=== PATIENT | female | born 1980 | race American Indian/Alaskan Native ===

== ENCOUNTER 2016-07-14 09:38 | Emergency (ER) | payer MEDICAID ==
--- NOTE | 2016-07-14 10:29 | Emergency Department Report ---
Chief Complaint: Abdominal Pain Stated Complaint: STOMACH PAIN Time Seen by Provider: 07/14/16 10:20 - HPI History of Present Illness: 36-year-old -Filipino female that comes in for complaint of upper abdominal pain 4 days. She denies any nausea vomiting or diarrhea. She denies any fever. She does report that she has asthma and uses an albuterol inhaler to often. She is followed by primary care provider but will need to check in. Denies any urinary issues no belching. Pain is comes and goes. It is no alleviating or aggravating factors to her pain. - Exam Vital Signs: Vital Signs 07/14/16 10:13 Temperature 98.0 F Pulse Rate 116 H Respiratory 22 Rate Blood Pressure 176/104 O2 Sat by Pulse 95 Oximetry Physical Exam: Patient alert and oriented 3 no acute distress morbid obesity female cardiac regular rate and rhythm respiratory clear to auscultation bilaterally abdomen soft nontender nondistended bowel sounds throughout. MSE screening note: Focused history and physical exam performed. Due to findings the following was ordered: CBC CMP UA urine lipase. ED Disposition for MSE Condition: Stable Instructions: Abdominal Pain (ED)
[2016-07-14 11:09] LABS: Hematocrit 38.1 % (30.3-42.9); Hemoglobin 11.9 gm/dl (10.1-14.3); Mean Corpuscular HGB Conc 31 % (30-34); Mean Corpuscular Volume 77 fl (79-97); Platelet Count 409 K/mm3 (140-440); Red Blood Count 4.94 M/mm3 (3.65-5.03); Red Cell Distribution Width 17.9 % (13.2-15.2); White Blood Count 7.3 K/mm3 (4.5-11.0)
[2016-07-14 11:21] LABS: Mean Corpuscular Hemoglobin 24 pg (28-32)
[2016-07-14 11:33] LABS: Alanine Aminotransferase 12 units/L (7-56); Albumin 3.9 g/dL (3.9-5); Albumin/Globulin Ratio 0.9 %; Alkaline Phosphatase 74 units/L (35-129); Bilirubin,Total 0.3 mg/dL (0.1-1.2); Blood Urea Nitrogen 9 mg/dL (7-17); Calcium 9.2 mg/dL (8.4-10.2); Carbon Dioxide 26 mmol/L (22-30); Chloride 99.5 mmol/L (98-107); Glucose 105 mg/dL (65-100); Lipase 22 units/L (13-60); Potassium 4.4 mmol/L (3.6-5.0); Sodium 139 mmol/L (137-145); Total Protein 8.3 g/dL (6.3-8.2)
[2016-07-14 11:35] LABS: Anion Gap 18 mmol/L
[2016-07-14] MEDS ORDERED: MORPHINE IV ONE (20:20)
--- NOTE | 2016-07-14 20:24 | Emergency Department Report ---
HPI - General Chief Complaint: Abdominal Pain Time Seen by Provider: 07/14/16 10:20 - HPI HPI: This is a 36-year-old Afro-[place]ian female who presents to the emergency department with complaint of right upper quadrant and upper abdominal pain for the past 4 days. She denies any nausea, vomiting, diarrhea, fever, back pain, dysuria, vaginal bleeding or discharge. Patient denies as she says she is currently on her cycle. She tried some Tylenol No. 3 for her discomfort without much relief. Her primary care doctor is Dr. Brownlee but she is not seeing them regarding her symptoms. She has a past history of morbid obesity, hypertension, seizures and migraines. No recent travel or sick contacts at home. She was driven in today by a family member to be seen. ED Past Medical Hx - Past Medical History Hx Hypertension: Yes Hx GERD: Yes Hx Headaches / Migraines: Yes (MIGRAINES) Hx Seizures: Yes - Surgical History Additional Surgical History: Bilateral Keloid removal at ears - Social History Smoking Status: Never Smoker Substance Use Type: None - Medications Home Medications: Home Medications Medication Instructions Recorded Confirmed Last Taken Type Topiramate [Topamax] 100 mg PO BID 04/13/13 06/10/14 12/17/13 History levETIRAcetam [Keppra] 750 mg PO DAILY 04/13/13 06/10/14 12/17/13 History HYDROcodone/APAP 10-325 [[place] 1 each PO Q6HR PRN #14 tablet 10/24/13 05/27/14 Unknown Rx 10/325] Albuterol Sulfate [Ventolin HFA] 2 puff IH Q4H PRN #1 hfa.aer.ad 05/08/1406/09/14 Rx Acetaminophen/Codeine 1 tab PO Q6H PRN #14 tab 05/25/14 05/27/14 Unknown Rx [Acetaminophen-Codeine #3 TAB] Neomy/Polymyx B/Hc (Otic) Soln 4 drops OT TID 10 Days 05/25/14 05/27/14 Unknown Rx [Cortisporin (Otic) Soln] Amoxicillin [Trimox CAP] 1,000 mg PO Q8H #60 capsule 06/29/14 Unknown Rx HYDROcodone/APAP 5-325 [[place] 1 each PO Q6HR PRN #14 tablet 11/26/14 Unknown Rx 5-325 mg TAB] Pantoprazole [Protonix TAB] 40 mg PO QDAY #10 tablet 11/26/14 Unknown Rx Promethazine [Phenergan TAB] 25 mg PO Q6HR PRN #14 tab 11/26/14 Unknown Rx Albuterol Sulfate [Proair 90 mcg IH Q4HR PRN #2 aer.pow.ba 10/09/15 Unknown Rx Respiclick] Benzonatate [Tessalon Perles] 100 mg PO Q8HR PRN #30 capsule 10/09/15 Unknown Rx Acetaminophen/Codeine [Tylenol #3] 1 tab PO Q6H PRN #10 tab 04/18/16 Unknown Rx Ondansetron [Zofran TAB] 4 mg PO Q8HR PRN #10 tablet 04/18/16 Unknown Rx HYDROcodone/APAP 5-325 [[place] 1 each PO Q6HR PRN #10 tablet 07/15/16 Unknown Rx 5/325] Nitrofurantoin [place]/M-Cryst 100 mg PO Q12HR #14 capsule 07/15/16 Unknown Rx [Macrobid CAP] ED Review of Systems ROS: Stated complaint: STOMACH PAIN Other details as noted in HPI Comment: All other systems reviewed and negative Constitutional: denies: chills, fever Eyes: denies: eye pain, eye discharge, vision change ENT: denies: ear pain, throat pain Respiratory: denies: cough, shortness of breath, wheezing Cardiovascular: denies: chest pain, palpitations Gastrointestinal: abdominal pain. denies: nausea, vomiting, diarrhea Genitourinary: denies: urgency, dysuria, discharge Musculoskeletal: denies: back pain, joint swelling, arthralgia Skin: denies: rash, lesions Physical Exam - Physical Exam Vital Signs: Vital Signs 07/14/16 10:13 Temperature 98.0 F Pulse Rate 116 H Respiratory 22 Rate Blood Pressure 176/104 O2 Sat by Pulse 95 Oximetry Physical Exam: GENERAL: The patient is well-developed well-nourished. HEENT: Normocephalic. Atraumatic. Extraocular motions are intact. Patient has moist mucous membranes. Pupils equal reactive to light bilaterally. NECK: Supple. Trachea is midline. CHEST/LUNGS: Clear to auscultation. There is no respiratory distress noted. HEART/CARDIOVASCULAR: Regular. There is no tachycardia. There is no gallop rub or murmur. ABDOMEN: Abdomen is soft, nontender. Unable to reproduce patient's abdominal discomfort to palpation. No guarding or rebound tenderness. No peritoneal signs. Morbidly obese habitus. Patient has normal bowel sounds. There is no abdominal distention. SKIN: Warm and dry. NEURO: The patient is awake, alert, and oriented. The patient is cooperative. The patient has no focal neurologic deficits. The patient has normal speech. MUSCULOSKELETAL: There is no tenderness or deformity. There is no limitation range of motion. There is no evidence of acute injury. ED Course Vital Signs 07/14/16 10:13 Temperature 98.0 F Pulse Rate 116 H Respiratory 22 Rate Blood Pressure 176/104 O2 Sat by Pulse 95 Oximetry ED Medical Decision Making - Lab Data Result diagrams: 07/14/16 10:54 07/14/16 10:54 - Radiology Data Radiology results: report reviewed, image reviewed interpreted by me: Abdominal x-ray does not show any acute process. Right upper quadrant abdominal ultrasound does not show any acute process. - Medical Decision Making 36-year-old female presents with a four-day history of upper abdominal discomfort. There is no nausea, vomiting, diarrhea, fever, dysuria, vaginal bleeding or discharge. Patient's labs, other than the urinalysis, are mostly unremarkable. There is no leukocytosis. Normal belly labs. No renal insufficiency. Urinalysis shows a urinary tract infection. There is a large amount of hematuria but the patient is also currently on her menstrual cycle. She is not . Due to the patient's upper and right upper quadrant abdominal discomfort, an ultrasound was done that came back as a normal examination without any acute process. X-ray of the abdomen was also done that did not show any signs of obstruction or any other acute process as well. Patient was given a single dose of pain medication and some IV fluid resuscitation and upon reevaluation she is feeling better. She'll be discharged home with a prescription for antibiotics and a few pain pills. She' ll be encouraged to follow-up with her primary care doctor but encouraged to return to the ER with any worsening of her symptoms or any acute distress. - Differential Diagnosis pancreatitis, cystitis, hepatitis, , UTI, colitis Critical Care Time: No Critical care attestation.: If time is entered above; I have spent that time in minutes in the direct care of this critically ill patient, excluding procedure time. ED Disposition Clinical Impression: Hypertension Qualifiers: Hypertension type: essential hypertension Qualified Code(s): I10 - Essential ( primary) hypertension Abdominal pain Qualifiers: Abdominal location: upper abdomen, unspecified Qualified Code(s): R10.10 - Upper abdominal pain, unspecified UTI (urinary tract infection) Qualifiers: Urinary tract infection type: acute cystitis Hematuria presence: with hematuria Qualified Code(s): N30.01 - Acute cystitis with hematuria Disposition: DISCHARGED TO HOME OR SELFCARE Is pt being admited?: No Condition: Stable Instructions: Abdominal Pain (ED), Hypertension (ED), Urinary Tract Infection in Women (ED) Additional Instructions: Please follow-up with your primary care doctor in the next few days. Return to the emergency department with any worsening of your symptoms or any acute distress. You've been prescribed a medication that is sedating. Therefore this medication cannot be mixed with alcohol, or taken prior to driving, working, or being responsible for children. Prescriptions: HYDROcodone/APAP 5-325 [[place] 5/325] 1 each PO Q6HR PRN #10 tablet PRN Reason: Pain Nitrofurantoin [place]/M-Cryst [Macrobid CAP] 100 mg PO Q12HR #14 capsule Referrals: ANDRE BROWNLEE MD [Primary Care Provider] - 3-5 Days Forms: Work/School Release Form(ED) Time of Disposition: 01:32
--- NOTE | 2016-07-14 21:31 | Ultrasound Report ---
FINAL REPORT EXAM: US ABDOMEN LIMITED HISTORY: upper abd pain TECHNIQUE: Multiple grayscale sonographic images were obtained of the right upper quadrant of the abdomen. PRIORS: None. FINDINGS: The pancreas is incompletely evaluated this study. Visualized portion of the aorta is normal in caliber. Right kidney measures 11 centimeters in length. There is preserved corticomedullary differentiation. No focal hepatic lesion is identified. No shadowing stones are seen in the visualized portion of the gallbladder. Gallbladder wall thickness is 2.5 millimeters. The common bile duct measures 2.9 millimeters in diameter. IMPRESSION: 1. Gallbladder appears within normal limits. 2. No abnormal biliary dilatation is seen.
[2016-07-14] MEDS ORDERED: NACL 0.9% 1000 ML 1,000 ML ONE (21:58)
[2016-07-14] MEDS ORDERED: NACL 0.9% 1000 ML 1,000 ML IV ONE (22:20)
[2016-07-15 00:58] LABS: Bacteria,Urine 1+ /HPF (Negative); Bilirubin,Urine NEG (Negative); Blood,Urine LG (Negative); Ketones,Urine NEG (Negative); Leukocyte Esterase,Urine SM (Negative); Mucus,Urine FEW /HPF; Nitrite,Urine NEG (Negative); Urobilinogen,Urine < 2.0 mg/dL (<2.0)
[2016-07-15 01:00] LABS: RBC,Urine > 182.0 /HPF (0.0-6.0)
[2016-07-15] MEDS ORDERED: ROCEPHIN/NS 1 GM/50 ML 1 GM/50 ML BAG IV ONE (01:02)
[2016-07-15] MEDS ORDERED: MORPHINE ONE (01:52)
[2016-07-15] MEDS ORDERED: MORPHINE IV ONE (02:01)
[2016-07-15 02:17] VITALS: BP 133/81
--- NOTE | 2016-07-15 10:11 | XRay Report ---
ABDOMEN RADIOGRAPHS INDICATION: Abdominal pain. COMPARISON: 11/26/2014 CT. FINDINGS: Frontal abdominal radiographs, 4 images technically limited due to patient's body habitus. Flanks incompletely imaged. Right hemidiaphragm mildly elevated. Borderline/mild cardiomegaly. Grossly nonobstructive bowel gas pattern without gross pneumatosis or pneumoperitoneum, to the extent assessed. Few bony degenerative changes possible. CONCLUSION: Limited exam without gross radiographic abnormality, as described. Thank you for the opportunity to participate in this patient's care.
== END 2016-07-15 02:16 | disposition home or self-care (01) ==
LOC: ED 09:38
DX: N30.01 Acute cystitis with hematuria (principal); I10 Essential (primary) hypertension; K21.9 Gastro-esophageal reflux disease without esophagitis; G43.909 Migraine, unspecified, not intractable, without status migrainosus; R56.9 Unspecified convulsions
CPT/HCPCS: 36415; 74020; 76705; 80053; 81001; 81025; 83690; 85027; 87086; 96361; 96365; 96375; 96376; 99284; J0696; J2270; J7030

== ENCOUNTER 2016-12-01 10:05 | Emergency (ER) | payer MEDICAID ==
[2016-12-01 10:54] LABS: Basophils % (Auto) 0.7 % (0.0-1.8); Eosinophils % (Auto) 3.3 % (0.0-4.3); Hematocrit 36.2 % (30.3-42.9); Hemoglobin 11.7 gm/dl (10.1-14.3); Mean Corpuscular HGB Conc 32 % (30-34); Mean Corpuscular Volume 77 fl (79-97); Platelet Count 368 K/mm3 (140-440); Red Blood Count 4.72 M/mm3 (3.65-5.03); Red Cell Distribution Width 17.3 % (13.2-15.2); White Blood Count 6.3 K/mm3 (4.5-11.0)
[2016-12-01 10:58] LABS: Mean Corpuscular Hemoglobin 25 pg (28-32)
[2016-12-01 11:11] LABS: Alanine Aminotransferase 15 units/L (7-56); Alkaline Phosphatase 82 units/L (35-129); Anion Gap 16 mmol/L; BUN/Creatinine Ratio 13.75; Blood Urea Nitrogen 11 mg/dL (7-17); Calcium 8.9 mg/dL (8.4-10.2); Carbon Dioxide 30 mmol/L (22-30); Chloride 96.6 mmol/L (98-107); Glucose 105 mg/dL (65-100); Lipase 24 units/L (13-60); Potassium 4.6 mmol/L (3.6-5.0); Sodium 138 mmol/L (137-145); Total Protein 7.9 g/dL (6.3-8.2)
[2016-12-01] MEDS ORDERED: SUBLIMAZE IV ONE (16:18)
[2016-12-01] MEDS ORDERED: NACL ONE (16:46)
--- NOTE | 2016-12-01 17:59 | Cat Scan Report ---
FINAL REPORT PROCEDURE: CT abdomen and pelvis with contrast. TECHNIQUE: Computerized axial tomography of the abdomen and pelvis was performed after the IV injection of iodinated nonionic contrast. HISTORY: Left-sided flank pain. COMPARISON: No prior studies are available for comparison. FINDINGS: Image quality is degraded by the patient's morbid obesity. The lung bases are clear. There are no pleural effusions. The heart size is normal. The liver, pancreas and spleen appear normal. The gallbladder is contracted. The adrenal glands are not enlarged. Both kidneys appear normal in size and configuration. The abdominal aorta has a normal caliber. There is no retroperitoneal adenopathy. The unopacified gastrointestinal tract is unremarkable. A normal appendix is visible. The bladder, uterus and adnexal regions are unremarkable. The regional skeleton appears intact. IMPRESSION: Normal studies of the abdomen and pelvis.
[2016-12-01 18:54] LABS: Bacteria,Urine 1+ /HPF (Negative); Bilirubin,Urine NEG (Negative); Blood,Urine SM (Negative); Ketones,Urine NEG (Negative); Leukocyte Esterase,Urine MOD (Negative); Mucus,Urine FEW /HPF; Nitrite,Urine NEG (Negative); Protein,Urine <15 mg/dL mg/dL (Negative); Urobilinogen,Urine < 2.0 mg/dL (<2.0)
[2016-12-01] MEDS ORDERED: MORPHINE IV ONE (19:01)
[2016-12-01] MEDS ORDERED: NORCO 10/325 PO ONE (19:02)
--- NOTE | 2016-12-01 19:50 | Emergency Department Report ---
ED Abdominal Pain HPI - General Chief Complaint: Abdominal Pain Stated Complaint: SIDE PAIN Time Seen by Provider: 12/01/16 16:17 Source: patient Mode of arrival: Ambulatory Limitations: No Limitations - History of Present Illness Initial Comments: Patient is a 36-year-old female past medical history of GERD, obesity, seizures , keloids, who presents with left-sided abdominal pain that has been going on for the last 2 weeks the pain is a 4 out of 10 and it is intermittent and is not associated with any symptoms. It is an achy type pain it does not radiate nothing makes it better or worse. Patient denies any dysuria or increased frequency last bowel movement was this morning she denies any vaginal bleeding or vaginal discharge. Patient also denies any nausea, vomiting or diarrhea. Patient states that she's tried some [id number] medications for her pain. Severity scale (0 -10): 10 - Related Data Home Medications Medication Instructions Recorded Confirmed Last Taken Topiramate [Topamax] 100 mg PO BID 04/13/13 06/10/14 12/17/13 levETIRAcetam [Keppra] 750 mg PO DAILY 04/13/13 06/10/14 12/17/13 Previous Rx's Medication Instructions Recorded Last Taken Type HYDROcodone/APAP 10-325 [[place] 1 each PO Q6HR PRN #14 tablet 10/24/13 Unknown Rx 10/325] Albuterol Sulfate [Ventolin HFA] 2 puff IH Q4H PRN #1 hfa.aer.ad 05/08/14 Rx Acetaminophen/Codeine 1 tab PO Q6H PRN #14 tab 05/25/14 Unknown Rx [Acetaminophen-Codeine #3 TAB] Neomy/Polymyx B/Hc (Otic) Soln 4 drops OT TID 10 Days 05/25/14 Unknown Rx [Cortisporin (Otic) Soln] Amoxicillin [Trimox CAP] 1,000 mg PO Q8H #60 capsule 06/29/14 Unknown Rx HYDROcodone/APAP 5-325 [[place] 1 each PO Q6HR PRN #14 tablet 11/26/14 Unknown Rx 5-325 mg TAB] Pantoprazole [Protonix TAB] 40 mg PO QDAY #10 tablet 11/26/14 Unknown Rx Promethazine [Phenergan TAB] 25 mg PO Q6HR PRN #14 tab 11/26/14 Unknown Rx Albuterol Sulfate [Proair 90 mcg IH Q4HR PRN #2 aer.pow.ba 10/09/15 Unknown Rx Respiclick] Benzonatate [Tessalon Perles] 100 mg PO Q8HR PRN #30 capsule 10/09/15 Unknown Rx Acetaminophen/Codeine [Tylenol #3] 1 tab PO Q6H PRN #10 tab 04/18/16 Unknown Rx Ondansetron [Zofran TAB] 4 mg PO Q8HR PRN #10 tablet 04/18/16 Unknown Rx HYDROcodone/APAP 5-325 [[place] 1 each PO Q6HR PRN #10 tablet 07/15/16 Unknown Rx 5/325] Nitrofurantoin [place]/M-Cryst 100 mg PO Q12HR #14 capsule 07/15/16 Unknown Rx [Macrobid CAP] traMADol [Ultram 50 MG tab] 50 mg PO Q6HR PRN #15 tablet 12/01/16 Unknown Rx Allergies Allergy/AdvReac Type Severity Reaction Status Date / Time ibuprofen [From Motrin] Allergy Rash Verified 04/13/13 22:18 caffeine AdvReac Seizure Verified 05/27/14 16:09 ED Review of Systems ROS: Stated complaint: SIDE PAIN Other details as noted in HPI Constitutional: denies: chills, fever Eyes: denies: eye pain, eye discharge, vision change ENT: denies: ear pain, throat pain Respiratory: denies: cough, shortness of breath, wheezing Cardiovascular: denies: chest pain, palpitations Endocrine: no symptoms reported Gastrointestinal: abdominal pain, other (flank pain) Genitourinary: denies: urgency, dysuria, discharge Musculoskeletal: denies: back pain, joint swelling, arthralgia Skin: denies: rash, lesions Neurological: denies: headache, weakness, paresthesias Psychiatric: denies: anxiety, depression Hematological/Lymphatic: denies: easy bleeding, easy bruising ED Past Medical Hx - Past Medical History Hx Hypertension: Yes Hx GERD: Yes Hx Headaches / Migraines: Yes (MIGRAINES) Hx Seizures: Yes Additional medical history: Anemia - Surgical History Additional Surgical History: Bilateral Keloid removal at ears - Social History Smoking Status: Never Smoker Substance Use Type: None - Medications Home Medications: Home Medications Medication Instructions Recorded Confirmed Last Taken Type Topiramate [Topamax] 100 mg PO BID 04/13/13 06/10/14 12/17/13 History levETIRAcetam [Keppra] 750 mg PO DAILY 04/13/13 06/10/14 12/17/13 History HYDROcodone/APAP 10-325 [[place] 1 each PO Q6HR PRN #14 tablet 10/24/13 05/27/14 Unknown Rx 10/325] Albuterol Sulfate [Ventolin HFA] 2 puff IH Q4H PRN #1 hfa.aer.ad 05/08/1406/09/14 Rx Acetaminophen/Codeine 1 tab PO Q6H PRN #14 tab 05/25/14 05/27/14 Unknown Rx [Acetaminophen-Codeine #3 TAB] Neomy/Polymyx B/Hc (Otic) Soln 4 drops OT TID 10 Days 05/25/14 05/27/14 Unknown Rx [Cortisporin (Otic) Soln] Amoxicillin [Trimox CAP] 1,000 mg PO Q8H #60 capsule 06/29/14 Unknown Rx HYDROcodone/APAP 5-325 [[place] 1 each PO Q6HR PRN #14 tablet 11/26/14 Unknown Rx 5-325 mg TAB] Pantoprazole [Protonix TAB] 40 mg PO QDAY #10 tablet 11/26/14 Unknown Rx Promethazine [Phenergan TAB] 25 mg PO Q6HR PRN #14 tab 11/26/14 Unknown Rx Albuterol Sulfate [Proair 90 mcg IH Q4HR PRN #2 aer.pow.ba 10/09/15 Unknown Rx Respiclick] Benzonatate [Tessalon Perles] 100 mg PO Q8HR PRN #30 capsule 10/09/15 Unknown Rx Acetaminophen/Codeine [Tylenol #3] 1 tab PO Q6H PRN #10 tab 04/18/16 Unknown Rx Ondansetron [Zofran TAB] 4 mg PO Q8HR PRN #10 tablet 04/18/16 Unknown Rx HYDROcodone/APAP 5-325 [[place] 1 each PO Q6HR PRN #10 tablet 07/15/16 Unknown Rx 5/325] Nitrofurantoin [place]/M-Cryst 100 mg PO Q12HR #14 capsule 07/15/16 Unknown Rx [Macrobid CAP] traMADol [Ultram 50 MG tab] 50 mg PO Q6HR PRN #15 tablet 12/01/16 Unknown Rx ED Physical Exam - General Limitations: No Limitations ED Course Vital Signs 12/01/16 12/01/16 12/01/16 10:18 15:29 15:30 Temperature 98.9 F Pulse Rate 114 H 106 H 116 H Respiratory 22 15 18 Rate Blood Pressure 160/110 Blood Pressure [Right] O2 Sat by Pulse 94 Oximetry 12/01/16 12/01/16 12/01/16 15:40 15:50 16:00 Temperature Pulse Rate 102 H 103 H 99 H Respiratory 24 12 21 Rate Blood Pressure 140/79 140/79 140/79 Blood Pressure 140/79 [Right] O2 Sat by Pulse 95 95 94 Oximetry 12/01/16 12/01/16 12/01/16 16:10 16:11 16:20 Temperature 98.4 F Pulse Rate 99 H 99 H 105 H Respiratory 15 18 25 H Rate Blood Pressure 118/68 118/68 Blood Pressure 118/68 [Right] O2 Sat by Pulse 95 100 96 Oximetry 12/01/16 12/01/16 12/01/16 16:30 16:40 17:16 Temperature Pulse Rate 104 H 104 H 104 H Respiratory 25 H 25 H Rate Blood Pressure 118/68 118/68 118/68 Blood Pressure [Right] O2 Sat by Pulse 97 97 94 Oximetry 12/01/16 12/01/16 12/01/16 17:20 17:30 17:40 Temperature Pulse Rate 106 H 100 H 103 H Respiratory 16 9 L 12 Rate Blood Pressure 129/72 118/74 118/74 Blood Pressure [Right] O2 Sat by Pulse 93 92 89 Oximetry 12/01/16 12/01/16 12/01/16 17:50 18:00 18:10 Temperature Pulse Rate 106 H 97 H Respiratory 19 22 Rate Blood Pressure 118/74 118/74 118/74 Blood Pressure [Right] O2 Sat by Pulse 94 93 96 Oximetry 12/01/16 12/01/16 12/01/16 18:20 18:30 18:40 Temperature Pulse Rate 97 H 98 H 100 H Respiratory 25 H 17 27 H Rate Blood Pressure 133/87 124/70 124/70 Blood Pressure [Right] O2 Sat by Pulse 96 95 94 Oximetry 12/01/16 12/01/1612/01/17 18:50 19:00 19:10 Temperature Pulse Rate 96 H 97 H 99 H Respiratory 22 17 36 H Rate Blood Pressure 124/70 124/72 124/72 Blood Pressure [Right] O2 Sat by Pulse 96 95 91 Oximetry 12/01/16 12/01/16 12/01/16 19:20 19:30 19:40 Temperature Pulse Rate 96 H 94 H 99 H Respiratory 19 22 22 Rate Blood Pressure 124/72 111/59 111/59 Blood Pressure [Right] O2 Sat by Pulse 96 93 92 Oximetry 12/01/16 12/01/16 12/01/16 19:50 20:00 20:10 Temperature Pulse Rate 96 H 96 H 100 H Respiratory 37 H 22 19 Rate Blood Pressure 111/59 104/55 104/55 Blood Pressure [Right] O2 Sat by Pulse 84 90 91 Oximetry - Reevaluation(s) Reevaluation #1: 12/01/16 20:04 Patient's pain has improved also patient home patient's diagnostic questions have been answered and verbal additional verbal discharge instructions were given. ED Medical Decision Making - Lab Data Result diagrams: 12/01/16 10:29 12/01/16 10:29 Laboratory Results - last 24 hr 12/01/16 12/01/16 12/01/16 10:29 10:29 18:03 WBC 6.3 RBC 4.72 Hgb 11.7 Hct 36.2 MCV 77 L MCH 25 L MCHC 32 RDW 17.3 H Plt Count 368 Lymph % (Auto) 27.2 [place] % (Auto) 7.3 Eos % (Auto) 3.3 Baso % (Auto) 0.7 Lymph # 1.7 [place] # 0.5 Eos # 0.2 Baso # 0.0 Seg Neutrophils % 61.5 Seg Neutrophils # 3.9 Sodium 138 Potassium 4.6 Chloride 96.6 L Carbon Dioxide 30 Anion Gap 16 BUN 11 Creatinine 0.8 Estimated GFR > 60 BUN/Creatinine Ratio 13.75 Glucose 105 H Calcium 8.9 Total Bilirubin 0.20 AST 14 ALT 15 Alkaline Phosphatase 82 Total Protein 7.9 Albumin 4.0 Albumin/Globulin Ratio 1.0 Lipase 24 Urine Color Yellow Urine Turbidity Clear Urine pH 5.0 Ur Specific [place] 1.051 H Urine Protein <15 mg/dl Urine Glucose (UA) Neg Urine Ketones Neg Urine Blood Sm Urine Nitrite Neg Urine Bilirubin Neg Urine Urobilinogen < 2.0 Ur Leukocyte Esterase Mod Urine WBC (Auto) 21.0 H Urine RBC (Auto) 3.0 U Epithel Cells (Auto) 32.0 H Urine Bacteria (Auto) 1+ Urine Mucus Few - Radiology Data Radiology results: report reviewed, image reviewed CT abdomen contrast studies degree by patient's body habitus CT scan shows no acute abdominal processes. - Medical Decision Making Chief medical diagnosis: Pancreatitis Differential medical diagnosis: GERD, appendicitis, peptic ulcer disease, kidney stone We'll give pain control will get CBC CMP CT abdomen lipase normal reevaluate CT scan shows no acute findings lab results within normal limits patient has no acute abdominal process we'll send patient home with oral and adjacent medication. Critical care attestation.: If time is entered above; I have spent that time in minutes in the direct care of this critically ill patient, excluding procedure time. ED Disposition Clinical Impression: Left flank pain, Myalgia Disposition: - TO HOME OR SELFCARE Is pt being admited?: No Does the pt Need Aspirin: No Condition: Stable Instructions: Abdominal Pain (ED) Prescriptions: traMADol [Ultram 50 MG tab] 50 mg PO Q6HR PRN #15 tablet PRN Reason: Pain Referrals: PRIMARY CARE, [Primary Care Provider] - 3-5 Days Forms: Work/School Release Form(ED) Time of Disposition: 20:23
[2016-12-01] MEDS ORDERED: NACL 0.9% 1000 ML 1,000 ML ONE ×2 (20:26→20:27)
[2016-12-01] MEDS ORDERED: NACL 0.9% 1000 ML 1,000 ML IV ONE (20:35)
[2016-12-01 21:40] VITALS: BP 124/74
== END 2016-12-01 21:45 | disposition home or self-care (01) ==
LOC: ED 10:05
DX: R10.9 Unspecified abdominal pain (principal); M79.1 Myalgia; I10 Essential (primary) hypertension; K21.9 Gastro-esophageal reflux disease without esophagitis; G43.909 Migraine, unspecified, not intractable, without status migrainosus; D64.9 Anemia, unspecified; Z88.6 Allergy status to analgesic agent; Z91.02 Food additives allergy status
CPT/HCPCS: 36415; 74177; 80053; 81001; 83690; 85025; 96361; 96374; 96375; 99284; J2270; J3010; J7030; Q9967

== ENCOUNTER 2017-04-21 19:11 | Emergency (ER) | payer MEDICAID ==
[2017-04-21 21:32] LABS: Basophils % (Auto) 0.6 % (0.0-1.8); Eosinophils % (Auto) 2.6 % (0.0-4.3); Hematocrit 38.9 % (30.3-42.9); Mean Corpuscular HGB Conc 31 % (30-34); Mean Corpuscular Volume 76 fl (79-97); Platelet Count 408 K/mm3 (140-440); Red Blood Count 5.12 M/mm3 (3.65-5.03); White Blood Count 10.9 K/mm3 (4.5-11.0)
[2017-04-21 21:43] LABS: Alanine Aminotransferase 16 units/L (7-56); Albumin 3.9 g/dL (3.9-5); Albumin/Globulin Ratio 1.1 %; Alkaline Phosphatase 78 units/L (35-129); Anion Gap 17 mmol/L; BUN/Creatinine Ratio 12; Blood Urea Nitrogen 7 mg/dL (7-17); Carbon Dioxide 31 mmol/L (22-30); Chloride 94.8 mmol/L (98-107); Glucose 89 mg/dL (65-100); Lipase 20 units/L (13-60); Mean Corpuscular Hemoglobin 24 pg (28-32); Potassium 4.6 mmol/L (3.6-5.0); Sodium 138 mmol/L (137-145); Total Protein 7.5 g/dL (6.3-8.2)
[2017-04-22] MEDS ORDERED: ROCEPHIN/NS 1 GM/50 ML 1 GM/50 ML BAG IV ONE (08:49)
[2017-04-22] MEDS ORDERED: NACL 0.9% 1000 ML 1,000 ML IV ONE (08:49)
--- NOTE | 2017-04-22 08:52 | Emergency Department Report ---
ED General Adult HPI - General Chief complaint: Abdominal Pain Stated complaint: LEFT FLANK PAIN/TEJ Time Seen by Provider: 04/22/17 08:47 Source: patient Mode of arrival: Wheelchair Limitations: No Limitations - History of Present Illness Initial comments: The patient complains of constant severe pain and what she terms her left side. However, on examination the patient is referring to her anterior left upper quadrant. She recoils with initial comfort on palpation of the area. She also presents with other pain complaints to include intermittent headaches for one week and not chest pain. She states that "her bronchitis is acting up". She was found to have a pulse oximetry of 91% on room air. She states that she has been given nebs before. He does not complain of any productive cough. She's had no recent travel. She denies leg pain or significant swelling. -: week(s) Location: abdomen Radiation: non-radiation Quality: aching Consistency: constant Improves with: none Worsens with: none Associated Symptoms: headaches, shortness of breath. denies: confusion, chest pain, cough, diaphoresis, fever/chills - Related Data Home Medications Medication Instructions Recorded Confirmed Last Taken Topiramate [Topamax] 100 mg PO BID 04/13/13 06/10/14 12/17/13 levETIRAcetam [Keppra] 750 mg PO DAILY 04/13/13 06/10/14 12/17/13 Previous Rx's Medication Instructions Recorded Last Taken Type HYDROcodone/APAP 10-325 [[place] 1 each PO Q6HR PRN #14 tablet 10/24/13 Unknown Rx 10/325] Albuterol Sulfate [Ventolin HFA] 2 puff IH Q4H PRN #1 hfa.aer.ad 05/08/14 Rx Acetaminophen/Codeine 1 tab PO Q6H PRN #14 tab 05/25/14 Unknown Rx [Acetaminophen-Codeine #3 TAB] Neomy/Polymyx B/Hc (Otic) Soln 4 drops OT TID 10 Days bottle 05/25/14 Unknown Rx [Cortisporin (Otic) Soln] Amoxicillin [Trimox CAP] 1,000 mg PO Q8H #60 capsule 06/29/14 Unknown Rx HYDROcodone/APAP 5-325 [[place] 1 each PO Q6HR PRN #14 tablet 11/26/14 Unknown Rx 5-325 mg TAB] Pantoprazole [Protonix TAB] 40 mg PO QDAY #10 tablet 11/26/14 Unknown Rx Promethazine [Phenergan TAB] 25 mg PO Q6HR PRN #14 tab 11/26/14 Unknown Rx Albuterol Sulfate [Proair 90 mcg IH Q4HR PRN #2 aer.pow.ba 10/09/15 Unknown Rx Respiclick] Benzonatate [Tessalon Perles] 100 mg PO Q8HR PRN #30 capsule 10/09/15 Unknown Rx Acetaminophen/Codeine [Tylenol #3] 1 tab PO Q6H PRN #10 tab 04/18/16 Unknown Rx Ondansetron [Zofran TAB] 4 mg PO Q8HR PRN #10 tablet 04/18/16 Unknown Rx HYDROcodone/APAP 5-325 [[place] 1 each PO Q6HR PRN #10 tablet 07/15/16 Unknown Rx 5/325] Nitrofurantoin [place]/M-[place]ryst 100 mg PO Q12HR #14 capsule 07/15/16 Unknown Rx [Macrobid CAP] traMADol [Ultram 50 MG tab] 50 mg PO Q6HR PRN #15 tablet 12/01/16 Unknown Rx Allergies Allergy/AdvReac Type Severity Reaction Status Date / Time ibuprofen [From Motrin] Allergy Rash Verified 04/13/13 22:18 caffeine AdvReac Seizure Verified 05/27/14 16:09 ED Review of Systems ROS: Stated complaint: LEFT FLANK PAIN/TEJ Other details as noted in HPI Constitutional: denies: chills, fever Eyes: denies: eye pain, eye discharge, vision change ENT: denies: ear pain, throat pain Respiratory: shortness of breath. denies: cough, wheezing Cardiovascular: denies: chest pain, palpitations Endocrine: no symptoms reported Gastrointestinal: abdominal pain, nausea, vomiting. denies: diarrhea Genitourinary: denies: urgency, dysuria, discharge Musculoskeletal: denies: back pain, joint swelling, arthralgia Skin: denies: rash, lesions Neurological: denies: headache, weakness, paresthesias Psychiatric: denies: anxiety, depression Hematological/Lymphatic: denies: easy bleeding, easy bruising ED Past Medical Hx - Past Medical History Hx Hypertension: Yes Hx GERD: Yes Hx Headaches / Migraines: (MIGRAINES) Hx Seizures: Yes Additional medical history: Anemia - Surgical History Additional Surgical History: Bilateral Keloid removal at ears - Social History Smoking Status: Never Smoker Substance Use Type: None - Medications Home Medications: Home Medications Medication Instructions Recorded Confirmed Last Taken Type Topiramate [Topamax] 100 mg PO BID 04/13/13 06/10/14 12/17/13 History levETIRAcetam [Keppra] 750 mg PO DAILY 04/13/13 06/10/14 12/17/13 History HYDROcodone/APAP 10-325 [[place] 1 each PO Q6HR PRN #14 tablet 10/24/13 05/27/14 Unknown Rx 10/325] Albuterol Sulfate [Ventolin HFA] 2 puff IH Q4H PRN #1 hfa.aer.ad 05/08/1406/09/14 Rx Acetaminophen/Codeine 1 tab PO Q6H PRN #14 tab 05/25/14 05/27/14 Unknown Rx [Acetaminophen-Codeine #3 TAB] Neomy/Polymyx B/Hc (Otic) Soln 4 drops OT TID 10 Days bottle 05/25/14 05/27/14 Unknown Rx [Cortisporin (Otic) Soln] Amoxicillin [Trimox CAP] 1,000 mg PO Q8H #60 capsule 06/29/14 Unknown Rx HYDROcodone/APAP 5-325 [[place] 1 each PO Q6HR PRN #14 tablet 11/26/14 Unknown Rx 5-325 mg TAB] Pantoprazole [Protonix TAB] 40 mg PO QDAY #10 tablet 11/26/14 Unknown Rx Promethazine [Phenergan TAB] 25 mg PO Q6HR PRN #14 tab 11/26/14 Unknown Rx Albuterol Sulfate [Proair 90 mcg IH Q4HR PRN #2 aer.pow.ba 10/09/15 Unknown Rx Respiclick] Benzonatate [Tessalon Perles] 100 mg PO Q8HR PRN #30 capsule 10/09/15 Unknown Rx Acetaminophen/Codeine [Tylenol #3] 1 tab PO Q6H PRN #10 tab 04/18/16 Unknown Rx Ondansetron [Zofran TAB] 4 mg PO Q8HR PRN #10 tablet 04/18/16 Unknown Rx HYDROcodone/APAP 5-325 [[place] 1 each PO Q6HR PRN #10 tablet 07/15/16 Unknown Rx 5/325] Nitrofurantoin [place]/M-Cryst 100 mg PO Q12HR #14 capsule 07/15/16 Unknown Rx [Macrobid CAP] traMADol [Ultram 50 MG tab] 50 mg PO Q6HR PRN #15 tablet 12/01/16 Unknown Rx ED Physical Exam - General Limitations: No Limitations General appearance: alert, in no apparent distress - Head Head exam: Present: atraumatic, normocephalic - Eye Eye exam: Present: normal appearance - ENT ENT exam: Present: mucous membranes moist - Neck Neck exam: Present: normal inspection. Absent: tenderness, meningismus - Respiratory Respiratory exam: Present: decreased breath sounds (disposition secondary to morbid obesity). Absent: respiratory distress - Cardiovascular Cardiovascular Exam: Present: regular rate, normal rhythm. Absent: systolic murmur, diastolic murmur, rubs, gallop - GI/Abdominal GI/Abdominal exam: Present: soft, tenderness (the patient has a very exaggerated response even to touching her left upper quadrant. I do not believe she has peritoneal signs.), normal bowel sounds - Extremities Exam Extremities exam: Present: normal inspection - Back Exam Back exam: Present: normal inspection - Neurological Exam Neurological exam: Present: alert, oriented X3 - Psychiatric Psychiatric exam: Present: normal affect, normal mood - Skin Skin exam: Present: warm, dry, intact, normal color. Absent: rash ED Course Vital Signs 04/21/17 04/22/17 20:25 09:25 Temperature 98.9 F 99.3 F Pulse Rate 115 H 110 H Respiratory 20 18 Rate Blood Pressure 154/92 Blood Pressure 107/75 [Left] O2 Sat by Pulse 100 93 Oximetry - Reevaluation(s) Reevaluation #1: Arterial blood gas was ordered because the patient's CO2 was 31 and she is morbidly obese. This was not successful. She was given a neb. She stated that that improved her breathing. She persisted to state that she had excruciating pain in the left upper quadrant of the abdomen even to light touch. This pretty persistently appears disproportionate to her laboratory and a negative CT examination. I have ordered some additional blood work. The patient is referred to Dr. Louis for further evaluation. 04/22/17 13:13 ED Medical Decision Making - Lab Data Result diagrams: 04/21/17 21:02 04/21/17 21:02 Laboratory Results - last 24 hr 04/21/17 04/21/17 21:02 21:02 WBC 10.9 RBC 5.12 H Hgb 12.0 Hct 38.9 MCV 76 L MCH 24 L MCHC 31 RDW 19.0 H Plt Count 408 Lymph % (Auto) 16.6 [place] % (Auto) 9.1 H Eos % (Auto) 2.6 Baso % (Auto) 0.6 Lymph # 1.8 [place] # 1.0 H Eos # 0.3 Baso # 0.1 Seg Neutrophils % 71.1 H Seg Neutrophils # 7.8 H Sodium 138 Potassium 4.6 Chloride 94.8 L Carbon Dioxide 31 H Anion Gap 17 BUN 7 Creatinine 0.6 L Estimated GFR > 60 BUN/Creatinine Ratio 12 Glucose 89 Calcium 9.0 Total Bilirubin 0.30 AST 13 ALT 16 Alkaline Phosphatase 78 Troponin T < 0.010 Total Protein 7.5 Albumin 3.9 Albumin/Globulin Ratio 1.1 Lipase 20 Laboratory Results - last 24 hr 04/21/17 04/21/17 04/22/17 21:02 21:02 09:25 WBC 10.9 RBC 5.12 H Hgb 12.0 Hct 38.9 MCV 76 L MCH 24 L MCHC 31 RDW 19.0 H Plt Count 408 Lymph % (Auto) 16.6 [place] % (Auto) 9.1 H Eos % (Auto) 2.6 Baso % (Auto) 0.6 Lymph # 1.8 [place] # 1.0 H Eos # 0.3 Baso # 0.1 Seg Neutrophils % 71.1 H Seg Neutrophils # 7.8 H Sodium 138 Potassium 4.6 Chloride 94.8 L Carbon Dioxide 31 H Anion Gap 17 BUN 7 Creatinine 0.6 L Estimated GFR > 60 BUN/Creatinine Ratio 12 Glucose 89 Calcium 9.0 Total Bilirubin 0.30 AST 13 ALT 16 Alkaline Phosphatase 78 Troponin T < 0.010 Total Protein 7.5 Albumin 3.9 Albumin/Globulin Ratio 1.1 Lipase 20 Urine Color Yellow Urine Turbidity Clear Urine pH 6.0 Ur Specific [place] 1.018 Urine Protein <15 mg/dl Urine Glucose (UA) Neg Urine Ketones Neg Urine Blood Neg Urine Nitrite Neg Urine Bilirubin Neg Urine Urobilinogen < 2.0 Ur Leukocyte Esterase Neg Urine WBC (Auto) 3.0 Urine RBC (Auto) 3.0 U Epithel Cells (Auto) 1.0 Urine Bacteria (Auto) 1+ Urine Mucus Few Urine HCG, Qual Negative Critical care attestation.: If time is entered above; I have spent that time in minutes in the direct care of this critically ill patient, excluding procedure time. ED Disposition Clinical Impression: Morbid obesity, Hypoventilation associated with obesity Abdominal pain Qualifiers: Abdominal location: left upper quadrant Qualified Code(s): R10.12 - Left upper quadrant pain Disposition: 09 OP ADMIT IP TO THIS HOSP Is pt being admited?: Yes Does the pt Need Aspirin: Yes Condition: Stable Instructions: Abdominal Pain (ED) Referrals: JASWINDER RODRIGUEZ MD [Primary Care Provider] - 3-5 Days Time of Disposition: 13:16
[2017-04-22 09:44] LABS: Bacteria,Urine 1+ /HPF (Negative); Bilirubin,Urine NEG (Negative); Blood,Urine NEG (Negative); Ketones,Urine NEG (Negative); Leukocyte Esterase,Urine NEG (Negative); Mucus,Urine FEW /HPF; Nitrite,Urine NEG (Negative); Protein,Urine <15 mg/dL mg/dL (Negative); Urobilinogen,Urine < 2.0 mg/dL (<2.0)
[2017-04-22] MEDS ORDERED: cefTRIAXone 1 GM in NACL 0.9% 20 ML IV ONE (09:45)
[2017-04-22] MEDS ORDERED: DILAUDID IV ONE (10:05)
[2017-04-22] MEDS ORDERED: ZOFRAN IV ONE (10:06)
[2017-04-22] MEDS ORDERED: NACL ONE (10:31)
--- NOTE | 2017-04-22 11:27 | Cat Scan Report ---
CT ABDOMEN PELVIS WITH CONTRAST: HISTORY: Left upper quadrant abdominal pain. COMPARISON: 12/01/16. TECHNIQUE: Helical CT in 1.25mm intervals following IV contrast. Sagittal and coronal reconstructions. FINDINGS: Comment: The images are slightly limited in resolution secondary to body habitus. Lung bases: Normal. Liver: Normal. Biliary system: Normal. Pancreas: Normal. Spleen: Normal. Kidneys/ureters/bladder: Normal. Adrenal glands: Normal. Aorta: Normal. Intestines: Normal. Appendix: Normal. Pelvic viscera: Normal. Ascites: None. Adenopathy: None. Musculoskeletal: Normal. IMPRESSION: Unremarkable CT scan of the abdomen and pelvis with contrast. No change since 12/01/16.
[2017-04-22] MEDS ORDERED: DUONEB *Not for PRN Use IH ONE (11:48)
[2017-04-22] MEDS ORDERED: DILAUDID ONE (12:55)
[2017-04-22] MEDS ORDERED: PEPCID IV ONE (13:12)
[2017-04-22 13:45] VITALS: BP 129/84
[2017-04-22 14:08] LABS: Creatine Kinase 105 units/L (30-135); Creatine Kinase MB 2.2 ng/mL (0.0-4.0)
--- NOTE | 2017-04-22 14:09 | XRay Report ---
AP CHEST: HISTORY: Hypertension There is poor penetration secondary to body habitus. Cardiomegaly, pulmonary venous congestion and small pleural effusions are suspected which appear new since 10/09/15. There is no obvious consolidation or pneumothorax. IMPRESSION: Limited exam. Mild CHF is suspected.
--- NOTE | 2017-04-22 17:17 | History and Physical Report ---
History of Present Illness Chief complaint: my side hurts, and i cant breathe right History of present illness: 37 YO Female with HTN, GERD, Seizure DO, [place], presents to ED for evaluation. The patient complains of constant severe pain and what she terms her left side. However, on examination the patient is referring to her anterior left upper quadrant. She recoils with initial comfort on palpation of the area. She also presents with other pain complaints to include intermittent headaches for one week and not chest pain. She states that "her bronchitis is acting up". She was found to have a pulse oximetry of 91% on room air. She states that she has been given nebs before. He does not complain of any productive cough. She's had no recent travel. She denies leg pain or significant swelling. Pt seen and evaluated in ED, Cardiac workup negative, D dimer normal. Pt medically optimzed and back to usual state of health. Pt discharged home and instructed to f/u pcp 1wk. Past History Past Medical History: GERD, hypertension, seizures Past Surgical History: Other (ear surgery) Social history: single Family history: hypertension Medications and Allergies Allergies Allergy/AdvReac Type Severity Reaction Status Date / Time ibuprofen [From Motrin] Allergy Rash Verified 04/13/13 22:18 caffeine AdvReac Seizure Verified 05/27/14 16:09 Home Medications Medication Instructions Recorded Confirmed Last Taken Type Topiramate [Topamax] 100 mg PO BID 04/13/13 06/10/14 12/17/13 History levETIRAcetam [Keppra] 750 mg PO DAILY 04/13/13 06/10/14 12/17/13 History HYDROcodone/APAP 10-325 [[place] 1 each PO Q6HR PRN #14 tablet 10/24/13 05/27/14 Unknown Rx 10/325] Albuterol Sulfate [Ventolin HFA] 2 puff IH Q4H PRN #1 hfa.aer.ad 05/08/1406/09/14 Rx Acetaminophen/Codeine 1 tab PO Q6H PRN #14 tab 05/25/14 05/27/14 Unknown Rx [Acetaminophen-Codeine #3 TAB] Neomy/Polymyx B/Hc (Otic) Soln 4 drops OT TID 10 Days bottle 01/21/15 01/23/15 Unknown Rx [Cortisporin (Otic) Soln] Amoxicillin [Trimox CAP] 1,000 mg PO Q8H #60 capsule 06/29/14 Unknown Rx HYDROcodone/APAP 5-325 [[place] 1 each PO Q6HR PRN #14 tablet 11/26/14 Unknown Rx 5-325 mg TAB] Pantoprazole [Protonix TAB] 40 mg PO QDAY #10 tablet 11/26/14 Unknown Rx Promethazine [Phenergan TAB] 25 mg PO Q6HR PRN #14 tab 11/26/14 Unknown Rx Albuterol Sulfate [Proair 90 mcg IH Q4HR PRN #2 aer.pow.ba 10/09/15 Unknown Rx Respiclick] Benzonatate [Tessalon Perles] 100 mg PO Q8HR PRN #30 capsule 10/09/15 Unknown Rx Acetaminophen/Codeine [Tylenol #3] 1 tab PO Q6H PRN #10 tab 04/18/16 Unknown Rx Ondansetron [Zofran TAB] 4 mg PO Q8HR PRN #10 tablet 04/18/16 Unknown Rx HYDROcodone/APAP 5-325 [[place] 1 each PO Q6HR PRN #10 tablet 07/15/16 Unknown Rx 5/325] Nitrofurantoin [place]/M-Cryst 100 mg PO Q12HR #14 capsule 07/15/16 Unknown Rx [Macrobid CAP] traMADol [Ultram 50 MG tab] 50 mg PO Q6HR PRN #15 tablet 12/01/16 Unknown Rx Pantoprazole [Protonix] 40 mg PO QDAY #30 tablet 04/22/17 Unknown Rx Review of Systems Constitutional: no weight loss, no weight gain, no fever Ears, nose, mouth and throat: no ear pain, no ear discharge, no tinnitis, no decreased hearing Breasts: no change in shape, no swelling, no mass Cardiovascular: no orthopnea, no palpitations, no rapid/irregular heart beat Respiratory: no cough with sputum, no excessive sputum, no hemoptysis Gastrointestinal: no nausea, no vomiting, no diarrhea, no constipation Genitourinary Female: no pelvic pain, no dysuria, no urinary frequency, no urgency Rectal: no pain, no incontinence, no bleeding Musculoskeletal: no neck stiffness, no neck pain, no shooting arm pain, no arm numbness/tingling Integumentary: no rash, no pruritis, no redness, no sores Neurological: no weakness, no parathesias, no numbness, no tingling Psychiatric: no anxiety, no memory loss, no change in sleep habits, no insomnia Endocrine: no heat intolerance, no polyphagia, no excessive thirst, no polydipsia, no polyuria Hematologic/Lymphatic: no easy bruising, no easy bleeding Allergic/Immunologic: no urticaria, no allergic rhinitis, no wheezing Exam - Constitutional Vitals: Temp Pulse Resp BP Pulse Ox 98.9 F 108 H 18 129/84 94 04/22/17 13:35 04/22/17 13:35 04/22/17 13:05 04/22/17 13:35 04/22/17 13:35 General appearance: Present: no acute distress, well-nourished - EENT Eyes: Present: PERRL ENT: hearing intact, clear oral mucosa - Neck Neck: Present: supple, normal ROM - Respiratory Respiratory effort: normal Respiratory: bilateral: CTA - Cardiovascular Heart Sounds: Present: S1 & S2. Absent: rub, click - Extremities Extremities: pulses symmetrical, No edema Peripheral Pulses: within normal limits - Abdominal General gastrointestinal: Present: soft, non-tender, non-distended, normal bowel sounds Female genitourinary: Present: normal - Integumentary Integumentary: Present: clear, warm, dry - Musculoskeletal Musculoskeletal: gait normal, strength equal bilaterally - Psychiatric Psychiatric: appropriate mood/affect, intact judgment & insight - Neurologic Neurologic: CNII-XII intact, moves all extremities Results - Labs CBC & Chem 7: 04/21/17 21:02 04/21/17 21:02 Labs: Abnormal lab results 04/21/17 04/21/17 Range/Units 21:02 21:02 RBC 5.12 H (3.65-5.03) M/mm3 MCV 76 L (79-97) fl MCH 24 L (28-32) pg RDW 19.0 H (13.2-15.2) % [place] % (Auto) 9.1 H (0.0-7.3) % [place] # 1.0 H (0.0-0.8) K/mm3 Seg Neutrophils % 71.1 H (40.0-70.0) % Seg Neutrophils # 7.8 H (1.8-7.7) K/mm3 Chloride 94.8 L (98-107) mmol/L Carbon Dioxide 31 H (22-30) mmol/L Creatinine 0.6 L (0.7-1.2) mg/dL Assessment and Plan - Patient Problems (1) Abdominal pain Status: Acute Qualifiers: Abdominal location: left upper quadrant Qualified Code(s): R10.12 - Left upper quadrant pain Plan to address problem: workup negative, pt initiated on PPI therapy for suspected GERD, Pt to f/u with GI for endoscopy if persistent symptoms. (2) Hypoventilation associated with obesity Status: Acute Plan to address problem: Resume home medication, f/u pcp 1wk, increased physical activity, balanced diet.
[2017-04-22 17:46] LABS: INR 0.99 (0.87-1.13)
[2017-04-22 17:47] LABS: Partial Thromboplastin Time 37.2 Sec. (24.2-36.6)
== END 2017-04-22 19:40 | disposition admitted as inpatient to this hospital (09) ==
LOC: ED 19:11
DX: E66.2 Morbid (severe) obesity with alveolar hypoventilation (principal); R10.12 Left upper quadrant pain; K21.9 Gastro-esophageal reflux disease without esophagitis; G43.909 Migraine, unspecified, not intractable, without status migrainosus; F17.200 Nicotine dependence, unspecified, uncomplicated; I10 Essential (primary) hypertension; D64.9 Anemia, unspecified; Z88.8 Allergy status to other drugs, medicaments and biological substances
CPT/HCPCS: 36415; 71010; 74177; 80053; 81001; 81025; 82140; 82550; 82553; 82805; 83690; 83880; 84484; 85025; 85379; 85610; 85730; 93005; 93010; 94640; 96361; 96374; 96375; 99285; J0696; J1170; J2405; J7030; Q9967

== ENCOUNTER 2019-01-06 13:54 | Emergency (ER) | payer MEDICAID ==
--- NOTE | 2019-01-06 14:06 | Emergency Department Report ---
Blank Doc - Documentation Documentation: 39-year-old female that presents with left flank/paraspinal pain of lumbar. D enies any injuries. This initial assessment/diagnostic orders/clinical plan/treatment(s) is/are subject to change based on patient's health status, clinical progression and re- assessment by fellow clinical providers in the ED. Further treatment and workup at subsequent clinical providers discretion. Patient/guardians urged not to elope from the ED as their condition may be serious if not clinically assessed and managed. Initial orders include: 1- Patient sent to [facility] for further evaluation and treatment 2- UA
[2019-01-06 14:09] VITALS: BP 146/100
[2019-01-06] MEDS ORDERED: FLEXERIL PO ONE (14:41)
[2019-01-06] MEDS ORDERED: DECADRON IM ONE (14:41)
[2019-01-06] MEDS ORDERED: NORCO 10/325 PO ONE (14:41)
--- NOTE | 2019-01-06 14:45 | Emergency Department Report ---
ED Back Pain/Injury HPI - General Chief Complaint: Back Pain/Injury Stated Complaint: BACK PAIN Time Seen by Provider: 01/06/19 14:01 Source: patient Limitations: No Limitations - Related Data Home Medications Medication Instructions Recorded Confirmed Last Taken Topiramate [Topamax] 100 mg PO BID 04/13/13 06/10/14 12/17/13 levETIRAcetam [Keppra] 750 mg PO DAILY 04/13/13 06/10/14 12/17/13 Previous Rx's Medication Instructions Recorded Last Taken Type Albuterol Sulfate [Proair 90 mcg IH Q4HR PRN #2 aer.pow.ba 10/09/15 Unknown Rx Respiclick] Pantoprazole [Protonix] 40 mg PO QDAY #30 tablet 04/22/17 Unknown Rx Cyclobenzaprine [Flexeril] 10 mg PO TID PRN #10 tablet 01/06/19 Unknown Rx predniSONE [Deltasone] 50 mg PO QDAY #5 tab 01/06/19 Unknown Rx Allergies Allergy/AdvReac Type Severity Reaction Status Date / Time ibuprofen [From Motrin] Allergy Rash Verified 04/13/13 22:18 caffeine AdvReac Seizure Verified 05/27/14 16:09 ED Review of Systems ROS: Stated complaint: BACK PAIN Other details as noted in HPI Comment: All other systems reviewed and negative ED Past Medical Hx - Past Medical History Anemia,Keloids,Morbid Obestiy Family history: no significant family history ED Back Pain Physical Exam - Exam General: Vital signs noted. No distress. Alert and acting appropriately. ED Course Vital Signs 01/06/19 14:07 Temperature 98.8 F Pulse Rate 104 H Respiratory 20 Rate Blood Pressure 146/100 O2 Sat by Pulse 94 Oximetry Critical care attestation.: If time is entered above; I have spent that time in minutes in the direct care of this critically ill patient, excluding procedure time. ED Disposition Clinical Impression: Back pain, Morbid obesity Disposition: -01 TO HOME OR SELFCARE Is pt being admited?: No Does the pt Need Aspirin: No Condition: Stable Instructions: Acute Low Back Pain (ED) Additional Instructions: MEDS ORDERED TODAY HOT BATHS FOLLOW UP WITH PCP OR ORTHO MD THIS WEEK REFERRAL BELOW TO ORTHO MD Referrals: FINN WHEELER MD [Staff Physician] - 3-5 Days Time of Disposition: 14:42
== END 2019-01-06 15:42 | disposition home or self-care (01) ==
LOC: ED 13:54
DX: M54.9 Dorsalgia, unspecified (principal); E66.01 Morbid (severe) obesity due to excess calories; Z88.6 Allergy status to analgesic agent; Z91.018 Allergy to other foods
CPT/HCPCS: 96372; 99282; J1100

== ENCOUNTER 2019-07-14 11:00 | Outpatient (CLI) | payer MEDICAID | END 2019-07-14 11:01 | disposition home or self-care (01) | LOC: SLR 11:00 | PROVIDERS: ATTEND Otolaryngology | DX: G47.33 Obstructive sleep apnea (adult) (pediatric) (principal) | CPT/HCPCS: 95811 ==